=== PATIENT | female | born 1995 | race Caucasian/White ===

== ENCOUNTER 2017-06-07 17:51 | Emergency (ER) | payer OTHER ==
[~2017-06-07] VITALS: Ht 157.5 cm; Wt 45.4 kg
[~2017-06-07 17:51] MED LIST: Avidoxy100 MG PO; DOXY100T53 PO; HYDACE7.5L PO; IBUP400 PO; IBUP800; IBUP800 PO; Keflex500 MG PO; Lice Cream Rin120 ML TP; META400 PO; OXYACE5T; OXYACE5T PO; PRENATAL CAPLE1 EACH PO; PROM25 PO; Pepcid20 MG PO; Permethrin60 GM TP; TRAM50 PO; Verotin-Gr Cap1 EACH; Verotin-Gr Cap1 EACH PO; Zofran Odt4 MG SL; [UNRECOGNIZED DRUG - OTHER]
[2017-09-25] MEDS ORDERED: ATEN25 PO (10:13)
== END 2017-06-07 19:00 | disposition home or self-care (01) ==
LOC: ER 17:51
DX: R00.2 Palpitations (principal); F17.210 Nicotine dependence, cigarettes, uncomplicated
CPT/HCPCS: 93005; 93010; 99283

== ENCOUNTER 2017-12-13 20:37 | Emergency (ER) | payer OTHER ==
[~2017-12-13] VITALS: Ht 157.5 cm; Wt 49.4 kg
[~2017-12-13 20:37] MED LIST changes: +ATEN25 PO
[2017-12-13 21:44] LABS: BASOPHILS ABSOLUTE AUTO 0.03 K/mm3 (0.00-0.23); BASOPHILS PERCENT AUTO 0 % (0-2); EOSINOPHILS ABSOLUTE AUTO 0.13 K/mm3 (0.00-0.68); EOSINOPHILS PERCENT AUTO 1 % (0-6); Hematocrit 40.8 % (33.0-51.0); Hemoglobin 13.4 g/dL (11.5-16.0); IMMATURE GRAN ABSOLUTE AUTO 0.04 K/mm3 (0.00-0.10); IMMATURE GRAN PERCENT AUTO 0 % (0-1); LYMPHOCYTES ABSOLUTE AUTO 3.61 K/mm3 (0.84-5.20); LYMPHOCYTES PERCENT AUTO 33 % (21-46); MONOCYTES ABSOLUTE AUTO 0.49 K/mm3 (0.16-1.47); MONOCYTES PERCENT AUTO 4 % (4-13); Mean Corpuscular HGB 29.3 pg (26.0-34.0); Mean Corpuscular HGB Conc 32.8 g/dL (31.5-36.5); Mean Corpuscular Volume 89 fL (80-100); Mean Platelet Volume 10.5 fL (9.1-12.4); NEUTROPHILS ABSOLUTE AUTO 6.74 K/mm3 (1.96-9.15); NEUTROPHILS PERCENT AUTO 61 % (41-73); Platelet Count 259 K/mm3 (150-400); RDW Coefficient Variation 12.7 % (11.7-14.2); RDW Standard Deviation 42.3 fL (35.1-46.3); Red Blood Cell Count 4.57 M/mm3 (3.80-5.20); White Blood Cell Count 11.04 K/mm3 (4.00-11.30)
[2017-12-13 22:08] LABS: Alanine Aminotransfer (ALT/SGP 22 U/L (12-78); Albumin, Blood 3.6 g/dL (3.4-5.0); Alk Phos 50 U/L (50-136); Anion Gap 8 mmol/L (6-16); Aspartate Aminotrans (AST/SGOT 19 U/L (12-37); Bilirubin, Total 0.4 mg/dL (0.1-1.0); Blood Urea Nitrogen 13 mg/dL (8-24); Bun/Creatinine Ratio 18.9 (12.0-20.0); CO2, Blood 23 mmol/L (21-32); Calcium, Blood 8.3 mg/dL (8.5-10.1); Chloride, Blood 110 mmol/L (98-108); Creatinine, Blood 0.69 mg/dL (0.40-1.00); Globulin, Blood 3.5 g/dL (2.2-4.0); Glomerular Filtration Rate >60 (60-); Glucose, Blood 95 mg/dL (70-99); Potassium, Blood 3.8 mmol/L (3.5-5.5); Sodium, Blood 141 mmol/L (136-145); Total Protein, Blood 7.1 g/dL (6.4-8.2)
[2017-12-14 02:54] LABS: Troponin I <0.015 ng/mL (0.000-0.040)
== END 2017-12-14 04:53 | disposition home or self-care (01) ==
LOC: ER 20:37
PROVIDERS: Emergency Medicine
DX: L76.32 Postprocedural hematoma of skin and subcutaneous tissue following other procedure (principal); R55 Syncope and collapse; R00.2 Palpitations; F17.210 Nicotine dependence, cigarettes, uncomplicated
CPT/HCPCS: 36415; 71046; 80053; 84484; 85025; 93005; 93010; 93926; 96361; 96374; 99284-25; J1170; J7030

== ENCOUNTER 2018-04-23 10:44 | Emergency (ER) | payer OTHER ==
[~2018-04-23] VITALS: Ht 157.5 cm; Wt 50.8 kg
[2018-04-23] MEDS ORDERED: [UNRECOGNIZED DRUG - REMARK] (11:07)
[2018-04-23 12:17] LABS: Source, Urine Clean Catch
[2018-04-23 12:22] LABS: Bilirubin, Urine Neg (Neg); Blood, Urine 1+ (Neg); Glucose Qualitative, Urine Neg (Neg); Ketones, Urine Neg (Neg); Leukocyte Esterase, Urine 1+ (Neg); Nitrite, Urine Neg (Neg); Protein, Urine Neg (Neg); Urobilinogen, Urine NORM (Normal)
[2018-04-23 12:54] LABS: Appearance, Urine Clear (Clear); Color, Urine Yellow (P-Yellow)
[2018-04-23 13:01] LABS: Red Blood Cells, Urine 0-2 /hpf (0-2); White Blood Cells, Urine 0-2 /hpf (0-5)
[2018-04-23 13:02] LABS: Squamous Epithelial Cells Few /hpf (Few)
[2018-04-23 13:04] LABS: Bacteria Few /hpf
[2018-04-23] MEDS ORDERED: Prednisone20 MG PO (13:52)
[2018-04-23] MEDS ORDERED: Percocet 7.5-31 EACH PO (13:52)
[2018-04-23] MEDS ORDERED: Bactrim Ds Tab1 EACH PO (13:52)
== END 2018-04-23 14:01 | disposition home or self-care (01) ==
LOC: ER 10:44
PROVIDERS: Physician Assistant
DX: N61.1 Abscess of the breast and nipple (principal); F17.210 Nicotine dependence, cigarettes, uncomplicated
CPT/HCPCS: 76604; 81001; 81025; 87086; 99283-25

== ENCOUNTER → 2018-04-24 | Outpatient (CLI) | payer OTHER ==
[~2018-04-24] MED LIST changes: +Bactrim Ds Tab1 EACH PO; +HYDR1TAB94; +Percocet 7.5-31 EACH PO; +Prednisone20 MG PO; +[UNRECOGNIZED DRUG - REMARK]
== END | disposition home or self-care (01) ==
LOC: LAB SHORT 13:04 → LAB 13:04
DX: N61.1 Abscess of the breast and nipple (principal)
CPT/HCPCS: 87070; 87075; 87205

== ENCOUNTER 2018-05-02 10:01 | Day surgery (SDC) | payer OTHER ==
[~2018-05-02] VITALS: Ht 157.5 cm; Wt 50.0 kg
[~2018-05-02 10:01] MED LIST changes: -HYDR1TAB94
[2018-05-02] MEDS ORDERED: HYDR1TAB94 (11:03)
--- NOTE | 2018-05-02 11:33 | NUR ---
05/02/18 1133 Donna Prieto S PT. UPDATED ON HER SURGERY DELAY. PT. INFORMED APPROX. ANOTHER 30-45MIN. BEFORE HER SURGERY. PT. HAS MOM & SISTER IN ROOM WITH HER. PT. GIVEN A WARM BLANKET & CALL LIGHT IS WITHIN REACH. INFORMED DR. ESCOBAR THAT ALEXANDRA WIPE NOT USED ON PT., PT. 'S LEFT BREAST REALLY PAINFUL & GUARDING IT. GAUZE WAS PLACE OVER BREASE & A PILLOW CASE TO HOLD GAUZE IN PLACE FOR PT. COMFORT. LEFT BREAST AREA WITH RECTANGLE ABRASION FROM WHERE OLD DRESSING WAS PLACED PREVIOUSLY. NO REDNESS, JUST SOME PINK COLOR AROUND WHERE OLD DRESSING WAS PLACED PER PT.
--- NOTE | 2018-05-02 13:51 | NUR ---
05/02/18 1351 Flores Pierson LATE ENTRY PT INTO RECLINER, STEADY DURING TRANSFER. REPORTS PAIN AND NAUSEA. SEE VITALS SHEET FOR DOSES AND TIMES. FAMILY AT CHAIRSIDE. VSS.
== END 2018-05-02 14:05 | disposition home or self-care (01) ==
LOC: ORSCSDS 10:01
PROVIDERS: Surgery
PROC: 0H9U0ZX Drainage of Left Breast, Open Approach, Diagnostic (ICD-10-PCS; principal; 2018-05-02 11:15)
DX: N61.1 Abscess of the breast and nipple (principal); F17.210 Nicotine dependence, cigarettes, uncomplicated
CPT/HCPCS: 87070; 87071; 87075; 87205; J1100; J1885; J2250; J2405; J3010; J7120

== ENCOUNTER 2019-12-11 20:17 | Emergency (ER) | payer OTHER ==
[~2019-12-11] VITALS: Ht 157.5 cm; Wt 45.4 kg
[~2019-12-11 20:17] MED LIST changes: +HYDR1TAB94
[2019-12-11 20:39] LABS: BASOPHILS ABSOLUTE AUTO 0.04 K/mm3 (0.00-0.23); BASOPHILS PERCENT AUTO 0 % (0-2); EOSINOPHILS ABSOLUTE AUTO 0.12 K/mm3 (0.00-0.68); EOSINOPHILS PERCENT AUTO 1 % (0-6); Hematocrit 40.4 % (33.0-51.0); Hemoglobin 13.1 g/dL (11.5-16.0); IMMATURE GRAN ABSOLUTE AUTO 0.02 K/mm3 (0.00-0.10); IMMATURE GRAN PERCENT AUTO 0 % (0-1); LYMPHOCYTES PERCENT AUTO 39 % (21-46); MONOCYTES ABSOLUTE AUTO 0.61 K/mm3 (0.16-1.47); MONOCYTES PERCENT AUTO 6 % (4-13); Mean Corpuscular HGB 29.4 pg (26.0-34.0); Mean Corpuscular HGB Conc 32.4 g/dL (31.5-36.5); Mean Corpuscular Volume 91 fL (80-100); Mean Platelet Volume 10.7 fL (9.1-12.4); NEUTROPHILS ABSOLUTE AUTO 5.71 K/mm3 (1.96-9.15); NEUTROPHILS PERCENT AUTO 53 % (41-73); Platelet Count 223 K/mm3 (150-400); RDW Coefficient Variation 12.4 % (11.7-14.2); RDW Standard Deviation 41.6 fL (35.1-46.3); Red Blood Cell Count 4.46 M/mm3 (3.80-5.20)
[2019-12-11 20:58] LABS: Alanine Aminotransfer (ALT/SGP 32 U/L (12-78); Albumin, Blood 3.8 g/dL (3.4-5.0); Albumin/Globulin Ratio 1.2 (0.8-1.8); Alk Phos 47 U/L (50-136); Anion Gap 3 mmol/L (6-16); Aspartate Aminotrans (AST/SGOT 26 U/L (12-37); Bilirubin, Total 0.4 mg/dL (0.1-1.0); Blood Urea Nitrogen 8 mg/dL (8-24); Bun/Creatinine Ratio 9.6 (12.0-20.0); CO2, Blood 27 mmol/L (21-32); Calcium, Blood 8.6 mg/dL (8.5-10.1); Chloride, Blood 112 mmol/L (98-108); Creatinine, Blood 0.84 mg/dL (0.40-1.00); Globulin, Blood 3.2 g/dL (2.2-4.0); Glomerular Filtration Rate >60 (60-); Glucose, Blood 94 mg/dL (70-99); Potassium, Blood 3.9 mmol/L (3.5-5.5); Sodium, Blood 142 mmol/L (136-145)
[2019-12-11 23:00] LABS: Source, Urine Clean Catch
[2019-12-11 23:05] LABS: Appearance, Urine Clear (Clear); Bilirubin, Urine Neg (Neg); Blood, Urine 2+ (Neg); Color, Urine Yellow (P-Yellow); Glucose Qualitative, Urine Neg (Neg); Ketones, Urine Neg (Neg); Leukocyte Esterase, Urine 1+ (Neg); Nitrite, Urine Neg (Neg); Protein, Urine Neg (Neg); Specific Gravity, Urine 1.015 (1.003-1.022); Urobilinogen, Urine NORM (Normal)
[2019-12-11 23:18] LABS: White Blood Cells, Urine 0-2 /hpf (0-5)
[2019-12-11 23:19] LABS: Bacteria Mod /hpf; Squamous Epithelial Cells Few /hpf (Few)
== END 2019-12-11 23:38 | disposition home or self-care (01) ==
LOC: ER 20:17
PROVIDERS: Physician Assistant
DX: R10.31 Right lower quadrant pain (principal); R11.0 Nausea; F17.210 Nicotine dependence, cigarettes, uncomplicated
CPT/HCPCS: 36415; 74176; 80053; 81001; 81025; 83690; 85025; 87086; 99284-25

== ENCOUNTER → 2020-07-04 | Outpatient (CLI) | payer OTHER | END | disposition home or self-care (01) | LOC: LAB SHORT 13:40 → LAB EV 13:40 | DX: Z72.51 High risk heterosexual behavior (principal) | CPT/HCPCS: 87070; 87205 ==

== ENCOUNTER → 2021-01-11 | Outpatient (CLI) | payer OTHER ==
[2021-01-13 12:10] LABS: CHLAMYDIA TRACHOMATIS, NAA Negative (Negative)
== END | disposition home or self-care (01) ==
LOC: LAB 14:35 → LAB SHORT 14:35
PROVIDERS: Family Medicine
DX: N76.0 Acute vaginitis (principal)
CPT/HCPCS: 87070; 87205; 87491; 87591

== ENCOUNTER → 2022-06-20 | Outpatient (CLI) | payer OTHER | END | disposition home or self-care (01) | LOC: LAB 13:26 → LAB SHORT 13:26 | DX: L02.211 Cutaneous abscess of abdominal wall (principal) | CPT/HCPCS: 87070; 87075; 87077; 87147; 87186; 87205 ==

== ENCOUNTER 2023-01-02 11:17 | Emergency (ER) | payer OTHER ==
[~2023-01-02] VITALS: Ht 157.5 cm; Wt 69.4 kg
[2023-01-02 11:27] VITALS: BP 128/102
[2023-01-02] MEDS ORDERED: ONDA4 PO (11:31)
[2023-01-02] MEDS ORDERED: Amlodipine Bes2.5 MG PO (11:31)
[2023-01-02] MEDS ORDERED: GABA100 PO (11:31)
[2023-01-02 11:50] LABS: BASOPHILS ABSOLUTE AUTO 0.04 K/mm3 (0.00-0.23); BASOPHILS PERCENT AUTO 0 % (0-2); EOSINOPHILS ABSOLUTE AUTO 0.01 K/mm3 (0.00-0.68); EOSINOPHILS PERCENT AUTO 0 % (0-6); Hematocrit 40.7 % (33.0-51.0); Hemoglobin 13.8 g/dL (11.5-16.0); IMMATURE GRAN ABSOLUTE AUTO 0.04 K/mm3 (0.00-0.10); IMMATURE GRAN PERCENT AUTO 0 % (0-1); LYMPHOCYTES ABSOLUTE AUTO 1.19 K/mm3 (0.84-5.20); LYMPHOCYTES PERCENT AUTO 9 % (21-46); MONOCYTES ABSOLUTE AUTO 0.81 K/mm3 (0.16-1.47); MONOCYTES PERCENT AUTO 6 % (4-13); Mean Corpuscular HGB 28.6 pg (26.0-34.0); Mean Corpuscular HGB Conc 33.9 g/dL (31.5-36.5); Mean Corpuscular Volume 84 fL (80-100); Mean Platelet Volume 11.2 fL (9.1-12.4); NEUTROPHILS ABSOLUTE AUTO 11.13 K/mm3 (1.96-9.15); NEUTROPHILS PERCENT AUTO 84 % (41-73); Platelet Count 192 K/mm3 (150-400); RDW Coefficient Variation 13.1 % (11.7-14.2); RDW Standard Deviation 40.3 fL (35.1-46.3); Red Blood Cell Count 4.83 M/mm3 (3.80-5.20); White Blood Cell Count 13.22 K/mm3 (4.00-11.30)
[2023-01-02 12:11] LABS: Source, Urine Clean Catch
[2023-01-02 12:25] LABS: Albumin, Blood 3.8 g/dL (3.4-5.0); Bilirubin, Total 1.3 mg/dL (0.1-1.0); Bun/Creatinine Ratio 12.4 (12.0-20.0); Calcium, Blood 8.6 mg/dL (8.5-10.1); Creatinine, Blood 0.89 mg/dL (0.40-1.00); Globulin, Blood 3.9 g/dL (2.2-4.0); Potassium, Blood 3.7 mmol/L (3.5-5.5); Total Protein, Blood 7.7 g/dL (6.4-8.2)
[2023-01-02 12:57] LABS: Appearance, Urine Clear (Clear); Bilirubin, Urine Neg (Neg); Blood, Urine 5+ (Neg); Color, Urine Amber (P-Yellow); Glucose Qualitative, Urine Neg (Neg); Ketones, Urine 1+ (Neg); Leukocyte Esterase, Urine 1+ (Neg); Nitrite, Urine Neg (Neg); Protein, Urine 2+ (Neg); Specific Gravity, Urine 1.025 (1.003-1.022); Urobilinogen, Urine 3+ (Normal)
[2023-01-02 13:27] LABS: Bacteria Many /hpf; Mucus Heavy (0-Heavy); Squamous Epithelial Cells Many /hpf (Few)
== END 2023-01-02 17:23 | disposition left against medical advice (07) ==
LOC: ER 11:17
PROVIDERS: Student in an Organized Health Care Education/Training Program
DX: R10.11 Right upper quadrant pain (principal); R11.2 Nausea with vomiting, unspecified; G43.909 Migraine, unspecified, not intractable, without status migrainosus; R44.3 Hallucinations, unspecified; Z53.21 Procedure and treatment not carried out due to patient leaving prior to being seen by health care provider
CPT/HCPCS: 80053; 81001; 81025; 83690; 85025; 87086; 96374; 99281-25; J2405

== ENCOUNTER → 2023-01-23 | Outpatient (CLI) | payer OTHER ==
[~2023-01-23] MED LIST changes: +Amlodipine Bes2.5 MG PO; +GABA100 PO; +ONDA4 PO
[2023-01-23 14:34] LABS: BASOPHILS ABSOLUTE AUTO 0.02 K/mm3 (0.00-0.23); BASOPHILS PERCENT AUTO 0 % (0-2); EOSINOPHILS ABSOLUTE AUTO 0.07 K/mm3 (0.00-0.68); EOSINOPHILS PERCENT AUTO 1 % (0-6); Hematocrit 40.3 % (33.0-51.0); Hemoglobin 13.4 g/dL (11.5-16.0); IMMATURE GRAN ABSOLUTE AUTO 0.01 K/mm3 (0.00-0.10); IMMATURE GRAN PERCENT AUTO 0 % (0-1); LYMPHOCYTES ABSOLUTE AUTO 2.04 K/mm3 (0.84-5.20); LYMPHOCYTES PERCENT AUTO 29 % (21-46); MONOCYTES ABSOLUTE AUTO 0.45 K/mm3 (0.16-1.47); MONOCYTES PERCENT AUTO 7 % (4-13); Mean Corpuscular HGB 28.3 pg (26.0-34.0); Mean Corpuscular HGB Conc 33.3 g/dL (31.5-36.5); Mean Corpuscular Volume 85 fL (80-100); Mean Platelet Volume 11.7 fL (9.1-12.4); NEUTROPHILS ABSOLUTE AUTO 4.34 K/mm3 (1.96-9.15); NEUTROPHILS PERCENT AUTO 63 % (41-73); Platelet Count 234 K/mm3 (150-400); RDW Coefficient Variation 13.5 % (11.7-14.2); RDW Standard Deviation 41.8 fL (35.1-46.3); Red Blood Cell Count 4.73 M/mm3 (3.80-5.20); White Blood Cell Count 6.93 K/mm3 (4.00-11.30)
[2023-01-23 15:21] LABS: Albumin, Blood 3.7 g/dL (3.4-5.0); Albumin/Globulin Ratio 1.1 (0.8-1.8); Bilirubin, Total 0.7 mg/dL (0.1-1.0); Calcium, Blood 8.9 mg/dL (8.5-10.1); Creatinine, Blood 0.86 mg/dL (0.40-1.00); Free Thyroxine 0.86 ng/dL (0.70-1.60); Globulin, Blood 3.4 g/dL (2.2-4.0); Potassium, Blood 3.7 mmol/L (3.5-5.5); Thyroid Stimulating Hormone 0.842 uIU/mL (0.360-4.800); Total Protein, Blood 7.1 g/dL (6.4-8.2)
== END | disposition home or self-care (01) ==
LOC: LAB 11:08 → LAB SHORT 11:08
PROVIDERS: Student in an Organized Health Care Education/Training Program
DX: R63.4 Abnormal weight loss (principal)
CPT/HCPCS: 80053; 83036; 84439; 84443; 85025; 85651

== ENCOUNTER → 2023-03-07 | Outpatient (CLI) | payer OTHER ==
[~2023-03-07] MED LIST changes: +ALPR.5 PO
[2023-03-10 08:11] LABS: HIV 1,2 COMBO ANTIGEN/ANTIBODY Negative (Negative)
[2023-03-10 09:34] LABS: HEPATITIS C AB CIA INTERP Negative (Negative); HEPATITIS C ANTIBODY CIA INDEX 0.12 IV
== END | disposition home or self-care (01) ==
LOC: LAB SHORT 17:30 → LAB 17:30
PROVIDERS: Family Medicine
DX: R63.4 Abnormal weight loss (principal); Z11.59 Encounter for screening for other viral diseases
CPT/HCPCS: 86803; 87389

== ENCOUNTER 2023-03-20 12:41 | Emergency (ER) | payer OTHER ==
[~2023-03-20] VITALS: Ht 157.5 cm; Wt 59.0 kg
[~2023-03-20 12:41] MED LIST changes: -ALPR.5 PO
[2023-03-20 13:56] LABS: BASOPHILS ABSOLUTE AUTO 0.04 K/mm3 (0.00-0.23); BASOPHILS PERCENT AUTO 1 % (0-2); EOSINOPHILS ABSOLUTE AUTO 0.09 K/mm3 (0.00-0.68); EOSINOPHILS PERCENT AUTO 1 % (0-6); Hematocrit 38.1 % (33.0-51.0); Hemoglobin 13.1 g/dL (11.5-16.0); IMMATURE GRAN ABSOLUTE AUTO 0.02 K/mm3 (0.00-0.10); IMMATURE GRAN PERCENT AUTO 0 % (0-1); LYMPHOCYTES ABSOLUTE AUTO 2.25 K/mm3 (0.84-5.20); LYMPHOCYTES PERCENT AUTO 26 % (21-46); MONOCYTES ABSOLUTE AUTO 0.42 K/mm3 (0.16-1.47); MONOCYTES PERCENT AUTO 5 % (4-13); Mean Corpuscular HGB 28.9 pg (26.0-34.0); Mean Corpuscular HGB Conc 34.4 g/dL (31.5-36.5); Mean Corpuscular Volume 84 fL (80-100); NEUTROPHILS ABSOLUTE AUTO 5.92 K/mm3 (1.96-9.15); NEUTROPHILS PERCENT AUTO 68 % (41-73); Platelet Count 217 K/mm3 (150-400); RDW Coefficient Variation 12.8 % (11.7-14.2); RDW Standard Deviation 39.2 fL (35.1-46.3); Red Blood Cell Count 4.53 M/mm3 (3.80-5.20); White Blood Cell Count 8.74 K/mm3 (4.00-11.30)
[2023-03-20 14:13] LABS: Albumin, Blood 3.8 g/dL (3.4-5.0); Albumin/Globulin Ratio 1.2 (0.8-1.8); Bilirubin, Total 0.5 mg/dL (0.1-1.0); Bun/Creatinine Ratio 13.8 (12.0-20.0); Calcium, Blood 8.5 mg/dL (8.5-10.1); Creatinine, Blood 0.8 mg/dL (0.40-1.00); Globulin, Blood 3.3 g/dL (2.2-4.0); Potassium, Blood 3.8 mmol/L (3.5-5.5); Total Protein, Blood 7.1 g/dL (6.4-8.2)
[2023-03-20] MEDS ORDERED: ALPR.5 PO (16:02)
[2023-03-20 16:12] VITALS: BP 116/84
== END 2023-03-20 16:14 | disposition home or self-care (01) ==
LOC: ER 12:41
PROVIDERS: Physician Assistant
DX: R00.2 Palpitations (principal); R06.02 Shortness of breath; F41.9 Anxiety disorder, unspecified; R53.83 Other fatigue; F17.210 Nicotine dependence, cigarettes, uncomplicated; Z86.79 Personal history of other diseases of the circulatory system; Z79.899 Other long term (current) drug therapy
CPT/HCPCS: 71046; 80053; 84703; 85025; 85379; 93005; 93010; 99284-25

== ENCOUNTER 2023-04-17 07:56 | Day surgery (SDC) | payer OTHER ==
[~2023-04-17] VITALS: Ht 157.5 cm; Wt 61.8 kg
[~2023-04-17 07:56] MED LIST changes: +ALPR.5 PO; +BUSP5 PO; +BUTALB-ACETAMI1 EAC7 PO; +SUBLOCADE SC
[2023-04-17 08:22] VITALS: BP 106/79
--- NOTE | 2023-04-17 08:31 | NUR ---
History, Chart, Medications and Allergies reviewed before start of procedure. Lungs clear T/O to Auscultation. Patient confirms NPO status and agrees with scheduled surgery. Pre-Op teaching done. Pt verbalizes understanding. Patient States Post-Procedure ride home has been arranged. Patient states colon prep results clear.
--- NOTE | 2023-04-17 09:50 | NUR ---
04/17/23 0950 Abhijeet Moreno History, Chart, Medications and Allergies reviewed before start of procedure.MONITOR INTACT WITH CONTINUOUS PULSE OXIMETRY, CONTINUOUS END TITAL CO2, AND INTERMITTENT BLOOD PRESSURE.3-LEAD EKG REVIEWED WITH PHYSICIAN PRIOR TO START OF PROCEDURE.O2 VIA N/C INTACT THROUGHOUT SEDATION/PROCEDURE.See Anesthesia record.
[2023-04-17 10:20] VITALS: BP 94/73
[2023-04-17 10:30] VITALS: BP 106/76
[2023-04-17 10:43] VITALS: BP 102/70
--- NOTE | 2023-04-17 10:53 | NUR ---
DISCHARGE NOTE Patient up to Ambulate independently. Gait steady. Discharge instructions reviewed with patient. Patient verbalizes understanding. Copy given to patient to take home. Discharged via wheelchair to private car for ride home with dischrge instructions in hand.
== END 2023-04-17 23:14 | disposition home or self-care (01) ==
LOC: ORSCMMR 07:56 → ORD 09:30 → ORSCMMR 09:30
PROVIDERS: Internal Medicine Gastroenterology
PROC: 0DJD8ZZ Inspection of Lower Intestinal Tract, Via Natural or Artificial Opening Endoscopic (ICD-10-PCS; principal; 2023-04-17 09:30)
DX: K62.5 Hemorrhage of anus and rectum (principal); K59.03 Drug induced constipation; Z80.0 Family history of malignant neoplasm of digestive organs; G47.33 Obstructive sleep apnea (adult) (pediatric); I10 Essential (primary) hypertension; Z79.899 Other long term (current) drug therapy
CPT/HCPCS: J2704; J7120

== ENCOUNTER → 2024-01-22 | Outpatient (CLI) | payer OTHER ==
[2024-01-22 18:19] LABS: Candida Group, PCR NOT DETECTED (NOT DETECT); Candida glabrata-krusei, PCR NOT DETECTED (NOT DETECT)
[2024-01-22 18:51] LABS: Chlamydia Trachomatis Vaginal NOT DETECTED (NOT DETECT); Neisseria Gonorrhoea Vaginal NOT DETECTED (NOT DETECT)
[2024-01-22 19:09] LABS: Bacterial Vaginosis PCR Positive (NEGATIVE)
== END ==
LOC: LAB SHORT 15:21 → LAB 15:21
PROVIDERS: Registered Nurse Community Health
DX: N89.8 Other specified noninflammatory disorders of vagina (principal); Z11.3 Encounter for screening for infections with a predominantly sexual mode of transmission; Z20.2 Contact with and (suspected) exposure to infections with a predominantly sexual mode of transmission
CPT/HCPCS: 87481; 87491; 87591; 87661; 87801

== ENCOUNTER → 2024-02-20 | Outpatient (CLI) | payer OTHER ==
[2024-02-21 11:19] LABS: Candida Group, PCR NOT DETECTED (NOT DETECT); Candida glabrata-krusei, PCR NOT DETECTED (NOT DETECT)
[2024-02-21 11:24] LABS: Bacterial Vaginosis PCR Positive (NEGATIVE)
== END | disposition home or self-care (01) ==
LOC: LAB SHORT 14:21 → LAB 14:21
PROVIDERS: Registered Nurse Community Health
DX: N89.8 Other specified noninflammatory disorders of vagina (principal)
CPT/HCPCS: 87070; 87205; 87481; 87661; 87801

== ENCOUNTER → 2024-03-17 | Outpatient (CLI) | payer OTHER ==
[2024-03-17 20:44] LABS: Candida Group, PCR NOT DETECTED (NOT DETECT); Candida glabrata-krusei, PCR NOT DETECTED (NOT DETECT)
[2024-03-17 21:05] LABS: Bacterial Vaginosis PCR Positive (NEGATIVE)
== END ==
LOC: LAB 13:43 → LAB SHORT 13:43
PROVIDERS: Registered Nurse Community Health
DX: N89.8 Other specified noninflammatory disorders of vagina (principal)
CPT/HCPCS: 87481; 87661; 87801

== ENCOUNTER → 2024-03-23 | Outpatient (CLI) | payer OTHER ==
[2024-03-23 13:07] LABS: Hematocrit 40.4 % (33.0-51.0); Hemoglobin 13.7 g/dL (11.5-16.0); Mean Corpuscular HGB 28.8 pg (26.0-34.0); Mean Corpuscular HGB Conc 33.9 g/dL (31.5-36.5); Mean Corpuscular Volume 85 fL (80-100); Mean Platelet Volume 11.6 fL (9.1-12.4); Platelet Count 258 K/mm3 (150-400); RDW Coefficient Variation 12.8 % (11.7-14.2); RDW Standard Deviation 39.4 fL (35.1-46.3); Red Blood Cell Count 4.75 M/mm3 (3.80-5.20); White Blood Cell Count 6.71 K/mm3 (4.00-11.30)
[2024-03-23 14:10] LABS: Albumin, Blood 3.9 g/dL (3.4-5.0); Albumin/Globulin Ratio 1.2 (0.8-1.8); Bilirubin, Total 0.7 mg/dL (0.1-1.0); Calcium, Blood 8.9 mg/dL (8.5-10.1); Creatinine, Blood 0.88 mg/dL (0.40-1.00); Globulin, Blood 3.2 g/dL (2.2-4.0); Potassium, Blood 3.5 mmol/L (3.5-5.5); Thyroid Stimulating Hormone 0.793 uIU/mL (0.360-4.800); Total Protein, Blood 7.1 g/dL (6.4-8.2)
[2024-03-26 10:34] LABS: TESTOSTERONE BY MASS SPEC 23 ng/dL (9-55)
[2024-03-29 17:36] LABS: TESTOSTERONE, FREE MASS SPEC 1.7 pg/mL (0.8-7.4)
== END ==
LOC: LAB 11:37 → LAB SHORT 11:37
PROVIDERS: Family Medicine
DX: R68.82 Decreased libido (principal)
CPT/HCPCS: 80053; 84403; 84443; 85027

== ENCOUNTER → 2024-04-24 | Outpatient (CLI) | payer OTHER ==
[2024-04-24 15:55] LABS: Bacterial Vaginosis PCR Negative (NEGATIVE); Candida Group, PCR NOT DETECTED (NOT DETECT); Candida glabrata-krusei, PCR NOT DETECTED (NOT DETECT)
[2024-04-24 16:30] LABS: Chlamydia Trachomatis Vaginal NOT DETECTED (NOT DETECT); Neisseria Gonorrhoea Vaginal NOT DETECTED (NOT DETECT)
== END | disposition home or self-care (01) ==
LOC: LAB SHORT 12:45
PROVIDERS: Student in an Organized Health Care Education/Training Program
DX: N89.8 Other specified noninflammatory disorders of vagina (principal)
CPT/HCPCS: 81515; 87491; 87591

== ENCOUNTER 2024-06-12 13:14 | Observation (INO) | payer OTHER ==
[~2024-06-12] VITALS: Ht 165.1 cm; Wt 61.1 kg
[~2024-06-12 13:14] MED LIST changes: -BUPRENORPHIN-N1 EAC5 SL; -HYDHCL25 PO; -TOPI50 PO
[2024-06-12] MEDS ORDERED: NS 1,000 ML IV SCH ×2 (13:55→17:15)
[2024-06-12 13:58] LABS: BASOPHILS ABSOLUTE AUTO 0.03 K/mm3 (0.00-0.23); BASOPHILS PERCENT AUTO 0 % (0-2); EOSINOPHILS ABSOLUTE AUTO 0.07 K/mm3 (0.00-0.68); EOSINOPHILS PERCENT AUTO 1 % (0-6); Hematocrit 34.2 % (33.0-51.0); Hemoglobin 12.4 g/dL (11.5-16.0); IMMATURE GRAN ABSOLUTE AUTO 0.02 K/mm3 (0.00-0.10); IMMATURE GRAN PERCENT AUTO 0 % (0-1); LYMPHOCYTES ABSOLUTE AUTO 2.67 K/mm3 (0.84-5.20); LYMPHOCYTES PERCENT AUTO 33 % (21-46); MONOCYTES ABSOLUTE AUTO 0.51 K/mm3 (0.16-1.47); MONOCYTES PERCENT AUTO 6 % (4-13); Mean Corpuscular HGB 29.7 pg (26.0-34.0); Mean Corpuscular HGB Conc 36.3 g/dL (31.5-36.5); Mean Corpuscular Volume 82 fL (80-100); Mean Platelet Volume 10.8 fL (9.1-12.4); NEUTROPHILS ABSOLUTE AUTO 4.87 K/mm3 (1.96-9.15); NEUTROPHILS PERCENT AUTO 60 % (41-73); Platelet Count 218 K/mm3 (150-400); RDW Coefficient Variation 13.3 % (11.7-14.2); RDW Standard Deviation 39.8 fL (35.1-46.3); Red Blood Cell Count 4.18 M/mm3 (3.80-5.20); White Blood Cell Count 8.17 K/mm3 (4.00-11.30)
[2024-06-12 14:12] LABS: Alanine Aminotransfer (ALT/SGP 28 U/L (12-78); Albumin, Blood 3.8 g/dL (3.4-5.0); Albumin/Globulin Ratio 1.2 (0.8-1.8); Alk Phos 47 U/L (50-136); Anion Gap 10 mmol/L (3-11); Aspartate Aminotrans (AST/SGOT 22 U/L (12-37); Bilirubin, Total 0.9 mg/dL (0.1-1.0); Blood Urea Nitrogen 17 mg/dL (8-24); Bun/Creatinine Ratio 17.2 (12.0-20.0); CO2, Blood 22 mmol/L (21-32); Calcium, Blood 8.3 mg/dL (8.5-10.1); Chloride, Blood 111 mmol/L (98-108); Creatinine, Blood 0.99 mg/dL (0.40-1.00); Ethanol (Alcohol), Blood, Med <3 mg/dL; Globulin, Blood 3.2 g/dL (2.2-4.0); Glomerular Filtration Rate 79 (60-); Glucose, Blood 89 mg/dL (70-99); Potassium, Blood 3.5 mmol/L (3.5-5.5); Sodium, Blood 139 mmol/L (136-145)
[2024-06-12] MEDS ORDERED: DiphenhydrAMINE HCl 50 MG/ML 1ML Vial IV ONE (14:20)
[2024-06-12] MEDS ORDERED: MethylPREDNISolone Sod Succ 125 MG Vial IV ONE (14:20)
[2024-06-12] MEDS ORDERED: EPINEPhrine HCl 1 MG/ML 1ML Amp IM ONE (14:20)
[2024-06-12] MEDS ORDERED: Famotidine 10 MG/ML 2ML Vial IV ONE (14:20)
[2024-06-12] MEDS ORDERED: EpiNEPhrine 1 MG/1 ML 1ML Vial ONE (14:21)
[2024-06-12 14:28] LABS: U Amphetamine Screen Not Detected; U Barbituate Screen Not Detected; U Benzodiazapine Screen Not Detected; U Buprenorphine Screen DETECTED; U Cannabinoids Screen Not Detected; U Cocaine Screen Not Detected; U Methadone Screen Not Detected; U Methamphetamine Screen Not Detected; U Opiates Screen Not Detected; U Oxycodone Screen Not Detected; U Phencyclidine Screen Not Detected
[2024-06-12] MEDS ORDERED: LORazepam 2 MG/ML 1ML Injection IV ONE (14:30)
[2024-06-12] MEDS ORDERED: LORazepam 2 MG/ML 1ML Injection ONE (14:30)
[2024-06-12 14:58] LABS: Salicylate <1.7 mg/dL (2.8-20.0)
[2024-06-12 15:00] LABS: Acetaminophen, Random <2.0 ug/mL (10.0-30.0)
[2024-06-12 15:43] LABS: Adenovirus Not Detected (NOT DETECT); Bordetella pertussis Not Detected (NOT DETECT); Chlamydophila pneumoniae Not Detected (NOT DETECT); Coronavirus 229E Not Detected (NOT DETECT); Coronavirus HKU1 Not Detected (NOT DETECT); Coronavirus NL63 Not Detected (NOT DETECT); Coronavirus OC43 Not Detected (NOT DETECT); Human Metapneumovirus Not Detected (NOT DETECT); Human Rhinovirus/Enterovirus Not Detected (NOT DETECT); Influenza A/2009-H1 Not Detected (NOT DETECT); Influenza A/H1 Not Detected (NOT DETECT); Influenza A/H3 Not Detected (NOT DETECT); Influenza B Not Detected (NOT DETECT); Mycoplasma pneumoniae Not Detected (NOT DETECT); Parainfluenza Virus 1 Not Detected (NOT DETECT); Parainfluenza Virus 2 Not Detected (NOT DETECT); Parainfluenza Virus 3 Not Detected (NOT DETECT); Parainfluenza Virus 4 Not Detected (NOT DETECT); Respiratory Syncytial Virus Not Detected (NOT DETECT); SARS-Cov-2 (COVID-19), BioFire Not Detected (NOT DETECT)
[2024-06-12 17:03] LABS: RBC Count, CSF 0 /mm3 (0-0)
[2024-06-12 17:04] LABS: WBC Count, CSF 0 /mm3 (0-5)
[2024-06-12 17:05] LABS: Appearance, CSF Clear (Clear); Color, CSF No Color (No Color); RBC Count, CSF 16 /mm3 (0-0); WBC Count, CSF 6 /mm3 (0-5)
[2024-06-12] MEDS ORDERED: Ondansetron HCl 2 MG / ML 2ML Vial IV PRN (17:10)
[2024-06-12 17:14] LABS: Appearance, CSF Clear (Clear); Color, CSF No Color (No Color)
[2024-06-12] MEDS ORDERED: FLU VACC TS2024-25(6MOS UP)/PF 45 MCG/0.5 ML SYRINGE IM SCH (17:15)
[2024-06-12 17:40] LABS: Glucose, CSF 56 mg/dL (40-70)
[2024-06-12] MEDS ORDERED: TOPI50 PO ×2 (17:52)
[2024-06-12 17:53] LABS: Source, Urine Clean Catch
[2024-06-12] MEDS ORDERED: HYDHCL25 PO ×2 (17:53)
[2024-06-12 17:58] LABS: Appearance, Urine Clear (Clear); Bilirubin, Urine Neg (Neg); Blood, Urine Neg (Neg); Glucose Qualitative, Urine Neg (Neg); Ketones, Urine 1+ (Neg); Leukocyte Esterase, Urine Neg (Neg); Nitrite, Urine Neg (Neg); Protein, Urine Neg (Neg); Specific Gravity, Urine 1.005 (1.003-1.022); Urobilinogen, Urine NORM (Normal)
[2024-06-12 17:59] LABS: Color, Urine Pale Yellow (P-Yellow)
[2024-06-12] MEDS ORDERED: Enoxaparin 40 MG/0.4 ML SYR SC SCH (18:00)
[2024-06-12 19:02] LABS: Cryptococcus Neoformans/Gattii Not Detected (NOT DETECT); Enterovirus Not Detected (NOT DETECT); Escherichia Coli K1 Not Detected (NOT DETECT); Haemophilus Influenza Not Detected (NOT DETECT); Herpes Simplex Virus 1 Not Detected (NOT DETECT); Herpes Simplex Virus 2 Not Detected (NOT DETECT); Human Herpesvirus 6 Detected (NOT DETECT); Human Parechovirus Not Detected (NOT DETECT); Listeria Monocytogenes Not Detected (NOT DETECT); Neisseria Meningitidis Not Detected (NOT DETECT); Streptococcus Agalactiae Not Detected (NOT DETECT); Streptococcus Pneumoniae Not Detected (NOT DETECT); Varicella Zoster Virus Not Detected (NOT DETECT)
[2024-06-12] MEDS ORDERED: DEXTROSE 5% IV SCH (21:00)
[2024-06-12] MEDS ORDERED: ACYCLOVIR IV SCH (21:00)
[2024-06-12] MEDS ORDERED: BUPRENORPHIN-N1 EAC5 SL ×2 (21:54)
[2024-06-12 22:07] VITALS: BP 115/72
[2024-06-12] MEDS ORDERED: HyDROXyzine HCl 25 MG Tab PO PRN (23:15)
[2024-06-12] MEDS ORDERED: Buprenorphine HCL/Naloxone HCL 8MG-2MG Tab SL SCH (23:15)
[2024-06-12] MEDS ORDERED: Gabapentin 300 MG Cap PO SCH (23:15)
[2024-06-13 04:58] VITALS: BP 93/54
[2024-06-13 05:15] VITALS: BP 104/71
[2024-06-13 05:36] LABS: BASOPHILS ABSOLUTE AUTO 0.03 K/mm3 (0.00-0.23); BASOPHILS PERCENT AUTO 0 % (0-2); EOSINOPHILS ABSOLUTE AUTO 0.01 K/mm3 (0.00-0.68); EOSINOPHILS PERCENT AUTO 0 % (0-6); Hemoglobin 12.2 g/dL (11.5-16.0); IMMATURE GRAN ABSOLUTE AUTO 0.06 K/mm3 (0.00-0.10); IMMATURE GRAN PERCENT AUTO 1 % (0-1); LYMPHOCYTES ABSOLUTE AUTO 1.82 K/mm3 (0.84-5.20); LYMPHOCYTES PERCENT AUTO 16 % (21-46); MONOCYTES ABSOLUTE AUTO 0.59 K/mm3 (0.16-1.47); MONOCYTES PERCENT AUTO 5 % (4-13); Mean Corpuscular HGB 29.1 pg (26.0-34.0); Mean Corpuscular HGB Conc 34.9 g/dL (31.5-36.5); Mean Corpuscular Volume 84 fL (80-100); Mean Platelet Volume 10.7 fL (9.1-12.4); NEUTROPHILS ABSOLUTE AUTO 8.76 K/mm3 (1.96-9.15); NEUTROPHILS PERCENT AUTO 78 % (41-73); Platelet Count 198 K/mm3 (150-400); RDW Coefficient Variation 13.3 % (11.7-14.2); RDW Standard Deviation 40.5 fL (35.1-46.3); Red Blood Cell Count 4.19 M/mm3 (3.80-5.20); White Blood Cell Count 11.27 K/mm3 (4.00-11.30)
[2024-06-13 05:56] LABS: Albumin, Blood 3.4 g/dL (3.4-5.0); Albumin/Globulin Ratio 1.1 (0.8-1.8); Bun/Creatinine Ratio 19.9 (12.0-20.0); Calcium, Blood 8.3 mg/dL (8.5-10.1); Creatinine, Blood 0.75 mg/dL (0.40-1.00); Globulin, Blood 3.1 g/dL (2.2-4.0); Potassium, Blood 3.7 mmol/L (3.5-5.5); Total Protein, Blood 6.5 g/dL (6.4-8.2)
--- NOTE | 2024-06-13 07:26 | NUR ---
MD PLEASE READ PT IS HAVING VERY INCONSISTENT BEHAVIOURS WHEN IT COMES TO HER NEUROLOGICAL EXAMS. FULL NIHSS EXAM DONE ON ARRIVAL TO UNIT AND SHE APPEARS TO BE SIGNIFICANTLY EXAGERATING SYMPTOMS. FOR EXAMPLE, WHEN I ASKED HER LIFT HER LEFT LEG UP IN THE AIR FOR 5 SECONDS, AFTER THE 5 SECONDS WAS OVER, SHE PRETENDED THAT SHE COULDNT PUT HER LEG DOWN ON THE BED. I ASKED HER SEVERAL TIMES TO PUT HER LEG DOWN ON THE BED AND SHE PRETENDED THAT HER LEG WAS "STUCK" IN THE AIR. I PRESSED DOWN ON HER LEG TO HELP ASSIST HER TO PUT HER LEG DOWN ON THE BED, SHE USED HER STRENGTH TO RESIST ME PRESSING DOWN ON HER LEG AND TRIED VERY HARD TO KEEP HER LEG UP IN THE AIR. THEN WHEN DOING A SENSORY EXAM, I ASKED HER TO CLOSE HER EYES AND THEN TELL ME IF I WAS TOUCHING HER LEFT FOOT OR HER RIGHT FOOT. I GENTLY GRABBED HER RIGHT TOES AND SAID "AM I TOUCHING YOUR RIGHT FOOT OR YOUR LEFT FOOT?" AND SHE SAID "NEITHER, I DONT FEEL ANYTHING". SO I GRABBED HER RIGHT FOOT MUCH HARDER AND GAVE HER WHOLE LEG A GENTLE SHAKE AND ASKED HER THE SAME QUESTION. AGAIN SHE SAID "I DONT FEEL ANYTHING". HOWEVER, WHEN I SWITCHED TO THE Q-TIP TEST, WHERE YOU ASK THE PT DOES THIS FEEL SOFT OR FIRM?, SHE WAS ALL OF A SUDDEN ABLE TO FEEL HER RIGHT LEG AND WAS CORRECTLY ABLE TO TELL ME THE DIFFERENCE BETWEEN SOFT AND FIRM. IT IS WORTH NOTING THAT SHE HAS BEEN VERY TEARFUL WITH ASSESSMENTS AND UNABLE TO MAKE EYE CONTACT. DURING PRIVATE CONVERSATION WITH THIS RN, PT DENIES ABUSE, VIOLENCE OR SIGNIFICANT STRESSORS AT HOME.
[2024-06-13 07:32] VITALS: BP 87/58
--- NOTE | 2024-06-13 08:25 | NUR ---
NOTE: PATIENT LEFT THE ROOM VIA GURNEY AT THIS TIME TO IMAGING.
[2024-06-13 10:04] VITALS: BP 121/88
[2024-06-13 10:30] VITALS: BP 111/78
[2024-06-13] MEDS ORDERED: Acetaminophen 325 MG TABLET PO ONE (11:40)
[2024-06-13] MEDS ORDERED: Acetaminophen 325 MG TABLET PO PRN (11:40)
--- NOTE | 2024-06-13 11:52 | NUR ---
THIS RN COVERING FOR PRIMARY RN ANALYN RN. PATIENT REQUESTING TO BE DISCHARGED AND REFUSED ORDERED TYLENOL FOR HEADACHE. IS NOTIFIED AND DC ORDERS WILL BE COMING SOON.
--- NOTE | 2024-06-13 13:13 | NUR ---
SHIFT/DISCHARGE SUMMARY: PATIENT A/OX4, SPEECH CLEAR, ANSWER TO QUESTIONS APPROPRIATELY AND ABLE TO MAKE NEEDS KNOWN. PATIENT REPORTS "NUMBNESS AND TINGLING TO L SIDE OF MY FACE THAT COMES AND GOES." PATIENT DENIES CP/PRESSURE, DIZZINESS, N/V AND SOB. PATIENT REPORTS HEADACHE, STATED "I NORMALLY TAKES IBUPROFEN 800 MG AT HOME WHEN I HAVE HEADACHE." NOTIFIED DR. NADIA campos THIS ISSUE, ORDERED TYLENOL 650 MG PO NOW. OFFERED TYLENOL TO PATIENT FOR HEADACHE. PER PATIENT "NO, I DON'T WANT TYLENOL, I'M FINE." PATIENT ON TELE, SR HR IN THE 70'S BPM. PATIENT HAD MRI DONE TODAY c RESULT. DR. ZUNIGA REQUESTED THIS RN TO REPORT "MRI RESULT IS NORMAL, TO ASKED PATIENT IF SHE WOULD LIKE TO STAY OR GOING HOME AND TO CALL HER BACK IF ANY QUESTIONS OR CONCERNED, DONE. PATIENT, SO AND MOM AT BEDSIDE VERBALIZED UNDERSTANDING, NO FURTHER QUESTIONS AND REQUESTING TO BE DISCHARGE TODAY. NOTIFIED DR. NADIA campos PATIENT REQUEST. PIV DC'D. PATIENT DISCHARGE HOME. DISCHARGE INSTRUCTIONS PACKET GIVEN TO PATIENT. PATIENT EDUCATED ON ADMITTING S/S, TX AND TO F/U c PCP. PATIENT VERBALIZED UNDERSTANDING AND NO FURTHER QUESTIONS. PATIENT HAS HAD NO NEW RX ORDERED. ALL PERSONAL BELONGINGS WERE SENT HOME c THE PATIENT. PATIENT LEFT THE ROOM AT 1310, TRANSPORTED VIA W/C BY JEANIE SMITH TO PATIENT ENTRANCE.
--- NOTE | 2024-06-13 13:13 | NUR ---
ADDITIONAL NOTE: PATIENT MANN WAS DC'D THIS AM BY JEANIE SMITH. PATIENT HAS BEEN VOIDING AND AMBULATING TO BATHROOM c SBA. PATIENT DENIES DIFFICULTY URINATING WHEN ASKED.
== END 2024-06-13 13:54 | disposition home or self-care (01) ==
LOC: ER 13:14 → ERHOLD 13:15 → MEDS 13:15
PROVIDERS: Student in an Organized Health Care Education/Training Program; ADMIT Internal Medicine
DX: R20.0 Anesthesia of skin (principal); R47.01 Aphasia; F41.0 Panic disorder [episodic paroxysmal anxiety]; G93.40 Encephalopathy, unspecified; I10 Essential (primary) hypertension; G62.9 Polyneuropathy, unspecified; G89.29 Other chronic pain; Z79.899 Other long term (current) drug therapy; Z20.828 Contact with and (suspected) exposure to other viral communicable diseases; F17.210 Nicotine dependence, cigarettes, uncomplicated; R42 Dizziness and giddiness
CPT/HCPCS: 0202U; 36415; 51702; 62270; 70450; 70496; 70498; 70551; 80053; 80320; 81003; 82607; 82945; 83735; 83880; 84145; 84157; 84439; 84443; 84484; 85025; 85651; 86141; 87070; 87205; 87483; 89051; 93005; 93010; 96361-59; 96365-59; 96372; 96372-59; 96375-59; 96376; 99285-25; A9270; G0378; G0480; J0133; J0171; J1200; J1650; J2060; J2919; J7030; Q9967

== ENCOUNTER → 2024-06-12 | Outpatient (CLI) | payer OTHER ==
[~2024-06-12] MED LIST changes: +BUPRENORPHIN-N1 EAC5 SL; +HYDHCL25 PO; +TOPI50 PO
[2024-06-12 12:20] LABS: BASOPHILS ABSOLUTE AUTO 0.04 K/mm3 (0.00-0.23); BASOPHILS PERCENT AUTO 1 % (0-2); EOSINOPHILS ABSOLUTE AUTO 0.05 K/mm3 (0.00-0.68); EOSINOPHILS PERCENT AUTO 1 % (0-6); Hematocrit 35.8 % (33.0-51.0); Hemoglobin 12.4 g/dL (11.5-16.0); IMMATURE GRAN ABSOLUTE AUTO 0.01 K/mm3 (0.00-0.10); IMMATURE GRAN PERCENT AUTO 0 % (0-1); LYMPHOCYTES ABSOLUTE AUTO 2.35 K/mm3 (0.84-5.20); LYMPHOCYTES PERCENT AUTO 30 % (21-46); MONOCYTES ABSOLUTE AUTO 0.47 K/mm3 (0.16-1.47); MONOCYTES PERCENT AUTO 6 % (4-13); Mean Corpuscular HGB 28.6 pg (26.0-34.0); Mean Corpuscular HGB Conc 34.6 g/dL (31.5-36.5); Mean Corpuscular Volume 83 fL (80-100); Mean Platelet Volume 10.5 fL (9.1-12.4); NEUTROPHILS PERCENT AUTO 62 % (41-73); Platelet Count 222 K/mm3 (150-400); RDW Coefficient Variation 13.3 % (11.7-14.2); RDW Standard Deviation 40.3 fL (35.1-46.3); Red Blood Cell Count 4.33 M/mm3 (3.80-5.20); White Blood Cell Count 7.72 K/mm3 (4.00-11.30)
[2024-06-12 12:36] LABS: Albumin, Blood 3.8 g/dL (3.4-5.0); Albumin/Globulin Ratio 1.1 (0.8-1.8); Bilirubin, Total 1.1 mg/dL (0.1-1.0); Calcium, Blood 8.7 mg/dL (8.5-10.1); Globulin, Blood 3.5 g/dL (2.2-4.0); Potassium, Blood 3.7 mmol/L (3.5-5.5); Total Protein, Blood 7.3 g/dL (6.4-8.2)
== END | disposition home or self-care (01) ==
LOC: LAB SHORT 12:17 → LAB 12:17
PROVIDERS: Emergency Medicine
DX: R42 Dizziness and giddiness (principal)
CPT/HCPCS: 80053; 80320; 84484; 85025

== ENCOUNTER → 2024-06-22 | Outpatient (CLI) | payer OTHER ==
[~2024-06-22] MED LIST changes: +BUPRENORPHIN-N1 EAC5 SL; +HYDHCL25 PO; +TOPI50 PO
[2024-06-22 18:20] LABS: Bacterial Vaginosis PCR Negative (NEGATIVE); Candida Group, PCR NOT DETECTED (NOT DETECT); Candida glabrata-krusei, PCR NOT DETECTED (NOT DETECT)
== END ==
LOC: LAB 16:21 → LAB SHORT 16:21
PROVIDERS: Family Medicine
DX: N89.8 Other specified noninflammatory disorders of vagina (principal)
CPT/HCPCS: 81515

== ENCOUNTER → 2024-08-17 | Outpatient (CLI) | payer OTHER ==
[2024-08-17 14:26] LABS: BASOPHILS ABSOLUTE AUTO 0.04 K/mm3 (0.00-0.23); BASOPHILS PERCENT AUTO 1 % (0-2); EOSINOPHILS ABSOLUTE AUTO 0.14 K/mm3 (0.00-0.68); EOSINOPHILS PERCENT AUTO 2 % (0-6); Hematocrit 37.5 % (33.0-51.0); Hemoglobin 12.6 g/dL (11.5-16.0); IMMATURE GRAN ABSOLUTE AUTO 0.02 K/mm3 (0.00-0.10); IMMATURE GRAN PERCENT AUTO 0 % (0-1); LYMPHOCYTES ABSOLUTE AUTO 2.78 K/mm3 (0.84-5.20); LYMPHOCYTES PERCENT AUTO 39 % (21-46); MONOCYTES PERCENT AUTO 6 % (4-13); Mean Corpuscular HGB 28.6 pg (26.0-34.0); Mean Corpuscular HGB Conc 33.6 g/dL (31.5-36.5); Mean Corpuscular Volume 85 fL (80-100); Mean Platelet Volume 10.3 fL (9.1-12.4); NEUTROPHILS ABSOLUTE AUTO 3.83 K/mm3 (1.96-9.15); NEUTROPHILS PERCENT AUTO 53 % (41-73); Platelet Count 249 K/mm3 (150-400); RDW Coefficient Variation 13.1 % (11.7-14.2); RDW Standard Deviation 40.6 fL (35.1-46.3); Red Blood Cell Count 4.41 M/mm3 (3.80-5.20); White Blood Cell Count 7.21 K/mm3 (4.00-11.30)
[2024-08-17 14:40] LABS: Albumin, Blood 3.7 g/dL (3.4-5.0); Albumin/Globulin Ratio 1.1 (0.8-1.8); Bilirubin, Total 0.3 mg/dL (0.1-1.0); Bun/Creatinine Ratio 16.1 (12.0-20.0); Creatinine, Blood 0.93 mg/dL (0.40-1.00); Globulin, Blood 3.4 g/dL (2.2-4.0); Potassium, Blood 4.2 mmol/L (3.5-5.5); Total Protein, Blood 7.1 g/dL (6.4-8.2)
== END ==
LOC: LAB SHORT 14:23 → LAB 14:23
PROVIDERS: Physician Assistant Medical
DX: M54.50 Low back pain, unspecified (principal)
CPT/HCPCS: 80053; 85025; 85651; 86140